=== PATIENT | male | born 1995 | race African-American/Black ===

== ENCOUNTER 2017-03-28 16:52 | Emergency (ER) | payer SELFPAY ==
[~2017-03-28] VITALS: Ht 182.9 cm; Wt 68.0 kg
[~2017-03-28 16:52] MED LIST: METH-37 PO; TRAM-48 PO
[2017-03-28 17:10] VITALS: BP 128/81
[2017-03-28] MEDS ORDERED: DICL50TA4 PO (17:38)
--- NOTE | 2017-03-28 17:39 | PHYS DOC ---
Past Medical History Past Medical History: Asthma Past Surgical History: No Surgical History Alcohol Use: Occasionally Drug Use: Marijuana Adult General Chief Complaint Chief Complaint: HAND PROBLEM HPI HPI Patient is a 21 year old male with history of asthma who presents with a cyst on his right wrist that he noted one year ago. Review of Systems Review of Systems Constitutional: Denies fever or chills [] Musculoskeletal: a cyst on his right wrist Integument: Denies rash or skin lesions [] Neurologic: Denies headache, focal weakness or sensory changes [] All other systems were reviewed and found to be within normal limits, except as documented in this note. Allergies Allergies Allergies Coded Allergies Type Severity Reaction Last Updated Verified shellfish derived Allergy Unknown 07/31/14 Yes Physical Exam Physical Exam Constitutional: Well developed, well nourished, no acute distress, non-toxic appearance. [] Skin: Warm, dry, no erythema, no rash. [] Back: No tenderness, no CVA tenderness. [] Extremities: Right dorsal wrist with a indurated cystic lesion consistent with a Keller's cyst. Full range of motion to the wrist and fingers. No scaphoid tenderness. Adequate radial medial and ulnar sensation to the right fingers. Neurologic: Alert and oriented X 3, normal motor function, normal sensory function, no focal deficits noted. [] Psychologic: Affect normal, judgement normal, mood normal. [] Current Patient Data Vital Signs Vital Signs Date Time Temp Pulse Resp B/P (MAP) Pulse Ox O2 Delivery O2 Flow Rate FiO2 03/28/17 17:10 97.6 58 18 100 Room Air 97.6 EKG EKG [] Radiology/Procedures Radiology/Procedures [] Course & Med Decision Making Course & Med Decision Making Pertinent Labs and Imaging studies reviewed. (See chart for details) Patient has right wrist Keller's cyst. Discharged with instructions to follow-up with Ortho. Provided prescription for diclofenac. Dragon Disclaimer Dragon Disclaimer This electronic medical record was generated, in whole or in part, using a voice recognition dictation system. Departure Departure Impression: Primary Impression: Bakers cyst Disposition: HOME, SELF-CARE Condition: STABLE Referrals: MINDI HASKINS (PCP) HORTENSIA GLALEGOS MD follow up in one week Patient Instructions: Keller's Cyst Additional Instructions: You were seen for cyst on your left wrist. We provided you an orthopedic doctor. Call the office on Thursday and have them follow up for this cyst. Take the prescribed medicine as needed for pain. Scripts Diclofenac Sodium (DICLOFENAC SODIUM) 50 Mg Tablet.dr 1 TAB PO BID, #30 TAB 1 Refill Prov: KAREN SUTHERLAND APRN 03/28/17 Problem Qualifiers Primary Impression: Bakers cyst Laterality: left Qualified Codes: M71.22 - Synovial cyst of popliteal space [Keller], left knee KAREN SUTHERLAND APRN Mar 28, 2017 17:38
== END 2017-03-28 17:52 | disposition home or self-care (01) ==
LOC: ER 16:52
DX: M71.331 Other bursal cyst, right wrist (principal); J45.909 Unspecified asthma, uncomplicated; Z91.013 Allergy to seafood
CPT/HCPCS: 99283

== ENCOUNTER 2017-10-07 18:24 | Emergency (ER) | payer SELFPAY | END 2017-10-07 20:31 | disposition home or self-care (01) | LOC: ER 18:24 | DX: S63.8X1A Sprain of other part of right wrist and hand, initial encounter (principal); J45.909 Unspecified asthma, uncomplicated; Z91.013 Allergy to seafood; W22.09XA Striking against other stationary object, initial encounter; Y93.89 Activity, other specified; Y92.89 Other specified places as the place of occurrence of the external cause; Y99.8 Other external cause status | CPT/HCPCS: 73130; 99284 ==

== ENCOUNTER 2018-10-14 13:34 | Emergency (ER) | payer SELFPAY ==
[~2018-10-14] VITALS: Ht 182.9 cm; Wt 68.0 kg
[~2018-10-14 13:34] MED LIST changes: +DICL50TA4 PO; +HYDR-3164 PO; +IBUP-1060 PO; +ORPH100T PO
[2018-10-14] MEDS ORDERED: ASPIRIN 325 MG TABLET PO ONE (14:00)
--- NOTE | 2018-10-14 14:25 | RAD ---
EXAM: CHEST 1 VIEW. HISTORY: Chest pain. COMPARISON: None. FINDINGS: A frontal view of the chest is obtained. There are no confluent infiltrates. There is no pneumothorax or pleural effusion. The heart is not enlarged. IMPRESSION: 1. No confluent infiltrates. Electronically signed by: Lakshmi Driscoll MD (10/14/2018 2:22 PM) [facility]
[2018-10-14 14:27] LABS: BASO % 1 % (0-3); EOS # 0.2 x10^3/uL (0.0-0.7); EOS % 7 % (0-3); HEMATOCRIT 42.1 % (39.0-53.0); HEMOGLOBIN 14.4 g/dL (13.0-17.5); LYMPH # 1.4 x10^3/uL (1.0-4.8); LYMPH % 45 % (24-48); MEAN CORPUSCULAR HEMOGLOBIN 30 pg (25-35); MEAN CORPUSCULAR HGB CONC 34 g/dL (31-37); MEAN CORPUSCULAR VOLUME 87 fL (79-100); MONO # 0.4 x10^3/uL (0.0-1.1); MONO % 12 % (0-9); NEUT % 34 % (31-73); PLATELET COUNT 235 x10^3/uL (140-400); RED BLOOD COUNT 4.86 x10^6/uL (4.30-5.70); RED CELL DISTRIBUTION WIDTH 12.5 % (11.5-14.5)
--- NOTE | 2018-10-14 14:30 | EKG ---
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
[2018-10-14 14:36] LABS: PROTHROMBIN TIME PATIENT 14.2 SEC (11.7-14.0)
[2018-10-14 14:37] LABS: PARTIAL THROMBOPLASTIN TIME 39 SEC (24-38)
[2018-10-14 14:40] LABS: D-DIMER < 0.27 ug/mlFEU (0.00-0.50)
[2018-10-14 14:58] LABS: CALCIUM 9.2 mg/dL (8.5-10.1); CREATININE 0.9 mg/dL (0.7-1.3); GFR 128.9; POTASSIUM 3.9 mmol/L (3.5-5.1)
[2018-10-14 15:22] LABS: BILIRUBIN,URINE NEGATIVE (NEG); CLARITY,URINE CLEAR; COLOR,URINE YELLOW; NITRITE,URINE NEGATIVE (NEG); PROTEIN,URINE NEGATIVE (NEG-TRACE)
[2018-10-14 15:28] LABS: BARBITURATES NEG (NEG); BENZODIAZEPINES NEG (NEG); CANNABINOIDS POS (NEG); COCAINE NEG (NEG); METHADONE NEG (NEG); OPIATES NEG (NEG); PHENCYCLIDINE NEG (NEG)
[2018-10-14 15:29] LABS: AMPHETAMINE/METHAMPHETAMINE NEG (NEG)
[2018-10-14 15:38] LABS: BACTERIA,URINE 0 /HPF (0-FEW); RBC,URINE 0 /HPF (0-2); SQUAMOUS EPITHELIAL CELL,UR FEW /LPF; WBC,URINE OCC /HPF (0-4)
[2018-10-14 16:00] VITALS: BP 126/76
--- NOTE | 2018-10-14 16:03 | PHYS DOC ---
Past Medical History Past Medical History: Asthma Past Surgical History: No Surgical History Additional Information: 1 CIG/DAY Alcohol Use: None Drug Use: Marijuana Social History Narrative: PT REPORTS NO DRUG USE TODAY WHEN ASKED Adult General Chief Complaint Chief Complaint: COUGH HPI HPI Patient is a 23 year old female with history of asthma who presents to the ED today complaining of 8 out of 10 substernal chest pain intermittently for 3 days. Patient denies anything in exacerbating or alleviating this pain. Denies any other symptoms at this pain. He is also complaining of nose bleeding. He states this morning he woke up and his pillow was covered with blood from his nose. He states he has had 3 episodes of nose bleeding so far. Denies any trauma. Denies any history of high blood pressure. He is also complaining of a dry cough. Denies any fever. Off note patient is on his phone looking down texting and is barely maintaining eye contact Review of Systems Review of Systems Constitutional: Denies fever or chills [] Eyes: Denies change in visual acuity, redness, or eye pain [] HENT: Reports nose bleeding episodes. Denies nasal congestion or sore throat [] Respiratory: Reports cough denies shortness of breath [] Cardiovascular: Reports chest pain GI: Denies abdominal pain, nausea, vomiting, bloody stools or diarrhea [] : Denies dysuria or hematuria [] Musculoskeletal: Denies back pain or joint pain [] Integument: Denies rash or skin lesions [] Neurologic: Denies headache, focal weakness or sensory changes [] All other systems were reviewed and found to be within normal limits, except as documented in this note. Current Medications Current Medications Current Medications Medications (Trade) Dose Ordered Sig/Terrie Start Time Stop Time Status Last Admin Dose Admin Aspirin (Maia Aspirin) 325 mg 1X ONCE 10/14/18 14:00 10/14/18 14:01 DC 10/14/18 14:46 325 MG Allergies Allergies Allergies Coded Allergies Type Severity Reaction Last Updated Verified shellfish derived Allergy Unknown 07/31/14 Yes Physical Exam Physical Exam Constitutional: Well developed, well nourished, no acute distress, non-toxic appearance. [] HENT: Normocephalic, atraumatic, bilateral external ears normal, oropharynx moist, no oral exudates, nose normal. [] Eyes: PERRLA, EOMI, conjunctiva normal, no discharge. [] Neck: Normal range of motion, no tenderness, supple, no stridor. [] Cardiovascular:Heart rate regular rhythm, no murmur [] Lungs & Thorax: Bilateral breath sounds clear to auscultation [] Abdomen: Bowel sounds normal, soft, no tenderness, no masses, no pulsatile masses. [] Skin: Warm, dry, no erythema, no rash. [] Back: No tenderness, no CVA tenderness. [] Extremities: No tenderness, no cyanosis, no clubbing, ROM intact, no edema. [] Neurologic: Alert and oriented X 3, normal motor function, normal sensory function, no focal deficits noted. [] Psychologic: Affect normal, judgement normal, mood normal. [] Current Patient Data Vital Signs Vital Signs Date Time Temp Pulse Resp B/P (MAP) Pulse Ox O2 Delivery O2 Flow Rate FiO2 10/14/18 13:50 98.0 54 18 132/72 (92) 100 Room Air 98.0 Lab Values Laboratory Tests Test 10/14/18 14:20 10/14/18 15:15 White Blood Count 3.0 x10^3/uL (4.0-11.0) L Red Blood Count 4.86 x10^6/uL (4.30-5.70) Hemoglobin 14.4 g/dL (13.0-17.5) Hematocrit 42.1 % (39.0-53.0) Mean Corpuscular Volume 87 fL (79-100) Mean Corpuscular Hemoglobin 30 pg (25-35) Mean Corpuscular Hemoglobin Concent 34 g/dL (31-37) Red Cell Distribution Width 12.5 % (11.5-14.5) Platelet Count 235 x10^3/uL (140-400) Neutrophils (%) (Auto) 34 % (31-73) Lymphocytes (%) (Auto) 45 % (24-48) Monocytes (%) (Auto) 12 % (0-9) H Eosinophils (%) (Auto) 7 % (0-3) H Basophils (%) (Auto) 1 % (0-3) Neutrophils # (Auto) 1.0 x10^3uL (1.8-7.7) L Lymphocytes # (Auto) 1.4 x10^3/uL (1.0-4.8) Monocytes # (Auto) 0.4 x10^3/uL (0.0-1.1) Eosinophils # (Auto) 0.2 x10^3/uL (0.0-0.7) Basophils # (Auto) 0.0 x10^3/uL (0.0-0.2) Prothrombin Time 14.2 SEC (11.7-14.0) H Prothrombin Time INR 1.1 (0.8-1.1) PTT 39 SEC (24-38) H D-Dimer (Zaida) < 0.27 ug/mlFEU Sodium Level 142 mmol/L (136-145) Potassium Level 3.9 mmol/L (3.5-5.1) Chloride Level 104 mmol/L (98-107) Carbon Dioxide Level 29 mmol/L (21-32) Anion Gap 9 (6-14) Blood Urea Nitrogen 14 mg/dL (8-26) Creatinine 0.9 mg/dL (0.7-1.3) Estimated GFR (Cockcroft-Gault) 128.9 Glucose Level 86 mg/dL (70-99) Calcium Level 9.2 mg/dL (8.5-10.1) Magnesium Level 2.0 mg/dL (1.8-2.4) Creatine Kinase 404 U/L (39-308) H Creatine Kinase MB (Mass) 1.1 ng/mL (0.0-3.6) Creatine Kinase MB Relative Index 0.3 % (0-4) Troponin I Quantitative < 0.017 ng/mL (0.000-0.055) ZS-Whi-U-Type Natriuretic Peptide 22 pg/mL (0-124) Thyroid Stimulating Hormone (TSH) 2.057 uIU/mL (0.358-3.74) Ethyl Alcohol Level < 10 mg/dL (0-10) Urine Collection Type Unknown Urine Color Yellow Urine Clarity Clear Urine pH 8.0 Urine Specific [place] 1.020 Urine Protein Negative mg/dL (NEG-TRACE) Urine Glucose (UA) Negative mg/dL (NEG) Urine Ketones (Stick) Negative mg/dL (NEG) Urine Blood Negative (NEG) Urine Nitrite Negative (NEG) Urine Bilirubin Negative (NEG) Urine Urobilinogen Dipstick 1.0 mg/dL (0.2 mg/dL) Urine Leukocyte Esterase Negative (NEG) Urine RBC 0 /HPF (0-2) Urine WBC Occ /HPF (0-4) Urine Squamous Epithelial Cells Few /LPF Urine Bacteria 0 /HPF (0-FEW) Urine Mucus Marked /LPF Urine Opiates Screen Neg (NEG) Urine Methadone Screen Neg (NEG) Urine Barbiturates Neg (NEG) Urine Phencyclidine Screen Neg (NEG) Urine Amphetamine/Methamphetamine Neg (NEG) Urine Benzodiazepines Screen Neg (NEG) Urine Cocaine Screen Neg (NEG) Urine Cannabinoids Screen Pos (NEG) Urine Ethyl Alcohol Neg (NEG) Laboratory Tests 10/14/18 14:20 Laboratory Tests 10/14/18 14:20 EKG EKG Interpreted by Dr. Gold sinus rhythm heart rate 50 no STEMI Radiology/Procedures Radiology/Procedures []PROCEDURE: PORTABLE CHEST 1V EXAM: CHEST 1 VIEW. HISTORY: Chest pain. COMPARISON: None. FINDINGS: A frontal view of the chest is obtained. There are no confluent infiltrates. There is no pneumothorax or pleural effusion. The heart is not enlarged. IMPRESSION: 1. No confluent infiltrates. Electronically signed by: Lakshmi Driscoll MD (10/14/2018 2:22 PM) [facility] DICTATED and SIGNED BY: CARMELITA DRISCOLL MD DATE: 10/14/18 1422 Course & Med Decision Making Course & Med Decision Making Pertinent Labs and Imaging studies reviewed. (See chart for details) This is a 23-year-old male patient who presents to the ED today with multiple complaints including cough, chest pain, nose bleeding, see history of present illness for further information. CBC with a WBC of 3.0 neutrophils 1. Patient denies any previous history of low white count though he does not have recollection of any previous numbers regarding his white count. BMP-no acute findings. D-dimer is normal, chest x-rays normal, EKG is negative. Spoke to patient about his symptoms. Recommended following up with the PCP. Provided return precautions and discharged in stable condition. Dragon Disclaimer Dragon Disclaimer This electronic medical record was generated, in whole or in part, using a voice recognition dictation system. Departure Departure Impression: Primary Impression: Chest pain Additional Impressions: Cough Epistaxis Disposition: HOME, SELF-CARE Condition: STABLE Referrals: MINDI HASKINS (PCP) follow up next week Patient Instructions: Chest Pain (Nonspecific), Cough, Adult, [id number], Nosebleed Additional Instructions: You were evaluated in the emergency room, your white count was noted at 3.0 this is low please follow up with a primary care doctor next week. Take over the counter medications as needed for your symptoms. Problem Qualifiers Primary Impression: Chest pain Chest pain type: unspecified Qualified Codes: R07.9 - Chest pain, unspecified KAREN SUTHERLAND APRN Oct 14, 2018 16:03
== END 2018-10-14 16:29 | disposition home or self-care (01) ==
LOC: ER 13:34
DX: R07.89 Other chest pain (principal); R04.0 Epistaxis; R05 Cough; J45.909 Unspecified asthma, uncomplicated; F17.210 Nicotine dependence, cigarettes, uncomplicated; Z91.013 Allergy to seafood; Z79.82 Long term (current) use of aspirin
CPT/HCPCS: 36415; 71045; 80048; 80307; 81001; 82553; 83735; 83880; 84443; 84484; 85025; 85379; 85610; 85730; 93005; 99285; G0480